=== PATIENT | female | born 1965 | race Caucasian/White ===

== ENCOUNTER 2018-03-06 15:01 | Emergency (ER) | payer BC ==
[~2018-03-06] VITALS: Ht 167.6 cm; Wt 73.0 kg
[2018-03-06 15:01] VITALS: BP_SYST 145
[2018-03-06] MEDS ORDERED: HYDROcodone/ACETAMIN 7.5-325 MG TAB PO ONE (15:30)
[2018-03-06 17:35] VITALS: BP_SYST 145
== END 2018-03-06 17:35 | disposition home or self-care (01) ==
LOC: SED 15:01
DX: S69.92XA Unspecified injury of left wrist, hand and finger(s), initial encounter (principal); M54.5 Low back pain; R03.0 Elevated blood-pressure reading, without diagnosis of hypertension; W01.0XXA Fall on same level from slipping, tripping and stumbling without subsequent striking against object, initial encounter; Y93.01 Activity, walking, marching and hiking; Y92.512 Supermarket, store or market as the place of occurrence of the external cause; Y99.8 Other external cause status
CPT/HCPCS: 29125; 72131; 73110; 99284; J7030